=== PATIENT | male | born 1955 | race African-American/Black ===

== ENCOUNTER 2016-04-24 08:23 | Emergency (ER) | payer MEDICAID ==
[2014-12-05 19:21] VITALS: BMI 22.0
[~2016-04-24 08:23] MED LIST: MIRALAX17 GM PO; PLAVIX75 MG PO; PRILOSEC20 MG PO; PRINIVIL20 MG PO; ROBAXIN500 MG PO; ULTRAM50 MG PO
[2016-04-24 09:14] LABS: BASOPHILS 0.4 % (0.0-2.0); EOSINOPHILS 1.8 % (0-7); HEMATOCRIT 25.9 % (42.0-54.0); HEMOGLOBIN 7.9 g/dL (13.5-17.5); IMMATURE GRANULOCYTES 0.2 % (0-5); LYMPHOCYTES 23.2 % (15-50); MCH 28.6 pg (26.0-34.0); MCHC 30.5 g/dL (31.0-37.0); MCV 93.8 fL (80.0-100.0); MEAN PLATELET VOLUME 8.3 fL (7.4-10.4); MONOCYTES 4.7 % (2-11); NEUTROPHILS 69.7 % (40-80); RBC 2.76 10x6/uL (4.20-6.10); RDW 17.4 % (11.5-14.5); WBC 11.2 10x3/uL (4.8-10.8)
[2016-04-24 09:15] LABS: PLATELET COUNT 293 10x3/uL (130-400)
[2016-04-24 09:36] LABS: ALBUMIN 2.1 g/dL (3.4-5.0); ALKALINE PHOSPHATASE 89 U/L (46-116); ALT (SGPT) 24 U/L (10-68); BILIRUBIN - TOTAL 0.16 mg/dL (0.2-1.3); CALC OSMOLALITY 290 mosm/kg (275-300); CALCIUM 9.1 mg/dL (8.5-10.1); CARBON DIOXIDE 30.5 mmol/L (21.0-32.0); CHLORIDE - SERUM 106 mmol/L (98-107); CREATININE - SERUM 1.1 mg/dL (0.6-1.3); GLUCOSE 127 mg/dL (74-106); POTASSIUM - SERUM 3.9 mmol/L (3.5-5.1); PROTEIN - SERUM 6.7 g/dL (6.4-8.2); SODIUM 143 mmol/L (136-145); UREA NITROGEN 24 mg/dL (7-18); eGFR NON AFRICAN AMERICAN 72 mL/min (90-120)
[2016-04-24 09:56] LABS: CHOL - HDL RATIO 3.8 ratio (2.3-4.9); CHOLESTEROL, TOTAL 148 mg/dL (0-200); CKMB 0.4 U/L (0.0-3.6); CREATINE KINASE 27 UL (21-232); HDL CHOLESTEROL 39 mg/dL (32-96); LDL CHOLESTEROL 92 mg/dL (0-100); LDL-HDL RATIO 2.4 ratio (1.5-3.5); TRIGLYCERIDE 87 mg/dL (30-200)
[2016-04-24 10:00] LABS: TROPONIN-I < 0.017 ng/mL (0.000-0.060)
== END 2016-04-24 12:00 | disposition home or self-care (01) ==
LOC: D.ER 08:23
PROVIDERS: Emergency Medicine
DX: R07.89 Other chest pain (principal); D64.9 Anemia, unspecified; G47.00 Insomnia, unspecified; I44.60 Unspecified fascicular block; R41.89 Other symptoms and signs involving cognitive functions and awareness

== ENCOUNTER 2017-02-04 16:17 | Emergency (ER) | payer MEDICAID ==
[2014-12-05 19:21] VITALS: BMI 22.0
[2017-02-04 16:38] LABS: APPEARANCE CLEAR (CLEAR); BILIRUBIN NEGATIVE (NEGATIVE); COLOR YELLOW (YELLOW); GLUCOSE NEGATIVE (NEGATIVE); KETONE NEGATIVE (NEGATIVE); NITRITE NEGATIVE (NEGATIVE); PROTEIN NEGATIVE (NEGATIVE); UROBILINOGEN NORMAL (NORMAL)
[2017-02-04 16:52] LABS: BASOPHILS 0.4 % (0-2); EOSINOPHILS 1.1 % (0-7); HEMATOCRIT 44.7 % (42.0-54.0); HEMOGLOBIN 15.1 g/dL (13.5-17.5); IMMATURE GRANULOCYTES 0.1 % (0-5); LYMPHOCYTES 58.6 % (15-50); MCH 32.8 pg (26.0-34.0); MCHC 33.8 g/dL (31.0-37.0); MCV 97.2 fL (80.0-100.0); MEAN PLATELET VOLUME 9.9 fL (7.4-10.4); NEUTROPHILS 33.8 % (40-80); PLATELET COUNT 168 10x3/uL (130-400); WBC 10.5 10x3/uL (4.8-10.8)
[2017-02-04 17:01] LABS: ALBUMIN 3.5 g/dL (3.4-5.0); BILIRUBIN - TOTAL 0.18 mg/dL (0.2-1.3); CALCIUM 9.1 mg/dL (8.5-10.1); CARBON DIOXIDE 26.9 mmol/L (21.0-32.0); CREATININE - SERUM 1.6 mg/dL (0.6-1.3); POTASSIUM - SERUM 3.9 mmol/L (3.5-5.1); PROTEIN - SERUM 7.9 g/dL (6.4-8.2)
== END 2017-02-04 17:35 | disposition home or self-care (01) ==
LOC: D.ER 16:17
PROVIDERS: Emergency Medicine
DX: F10.129 Alcohol abuse with intoxication, unspecified (principal); F17.200 Nicotine dependence, unspecified, uncomplicated

== ENCOUNTER 2018-10-17 21:00 | Emergency (ER) | payer SELFPAY ==
[~2018-10-17] VITALS: Ht 157.5 cm; Wt 81.8 kg
[2018-10-17 21:06] VITALS: BP 185/76; Ht 157.5 cm; Wt 81.8 kg
[2018-10-17 23:08] LABS: HEMATOCRIT 44.4 % (42.0-54.0); HEMOGLOBIN 15.3 g/dL (13.5-17.5); MCH 30.9 pg (26.0-34.0); MCHC 34.5 g/dL (31.0-37.0); MCV 89.7 fL (80.0-100.0); MEAN PLATELET VOLUME 10.1 fL (7.4-10.4); PLATELET COUNT 152 10x3/uL (130-400); RBC 4.95 10x6/uL (4.20-6.10); WBC 7.4 10x3/uL (4.8-10.8)
[2018-10-17 23:18] LABS: ALBUMIN 2.9 g/dL (3.4-5.0); ANION GAP 9.8 mmol/L (8-16); BILIRUBIN - TOTAL 0.16 mg/dL (0.2-1.3); CALCIUM 8.1 mg/dL (8.5-10.1); CARBON DIOXIDE 25.7 mmol/L (21.0-32.0); CREATININE - SERUM 1.4 mg/dL (0.6-1.3); POTASSIUM - SERUM 4.5 mmol/L (3.5-5.1); PROTEIN - SERUM 6.7 g/dL (6.4-8.2)
[2018-10-17 23:19] LABS: MAGNESIUM - SERUM 2.2 mg/dL (1.8-2.4)
[2018-10-17 23:31] LABS: EOSINOPHILS 2 % (0-7); LYMPHOCYTES 58 % (15-50); MONOCYTES 5 % (2-11); NEUTROPHILS 34 % (40-80); PLATELET ESTIMATE DECREASED
== END 2018-10-18 03:48 ==
LOC: D.ER 21:00
PROVIDERS: Emergency Medicine
DX: S93.401A Sprain of unspecified ligament of right ankle, initial encounter (principal); X58.XXXA Exposure to other specified factors, initial encounter; Y93.89 Activity, other specified; Y92.89 Other specified places as the place of occurrence of the external cause; F10.129 Alcohol abuse with intoxication, unspecified; K43.9 Ventral hernia without obstruction or gangrene

== ENCOUNTER 2019-09-28 15:19 | Inpatient (IN) | payer MEDICARE ==
[~2019-09-28] VITALS: Ht 157.5 cm; Wt 74.1 kg
[2019-09-28] VITALS (7 sets, daily range): BP systolic 160–225; BP diastolic 76–118
--- NOTE | ~2019-09-28 | HEMODYNAMI ---
PATIENT:ANTIONE ADLER JR MEDICAL RECORD: [id number] : 53 LOCATION:[facility] D.2118 ADMISSION DATE: 09/28/19 Generatedon:09/30/20198:55 Patient name: ANTIONE ADLER Patient #: [id number] : 1955 Date of study: 09/30/2019 Page: Of Hemodynamic Procedure Report Patient Data Patient Demographics Procedure consent was obtained First Name: ANTIONE Gender: Male Last Name: VITOR Suffix: Patient #: [id number] : 1955 Age: 63 year(s) SSN: [id number] Race: Black Additional ID: [id number] Contact details [address]: [address] [place] [address] State: [place] City: [place] Zip code: [address] Admission Admission Data Admission Date: 09/28/2019 Admission Time: 17:02 Arrival Date: 09/28/2019 Arrival Time: 17:02 Admit Source: Other Insurance Payor: Medicare Room #: D.2118 [facility] #: [id number] Height (in.): 61.81 BSA: 1.75 (m2) Height (cm.): 157 BMI: 30.02 (kg/m2) Weight (lbs.): 163.14 Weight (kg.): 74 Lab Results Lab Result Date: 09/30/2019 Lab Result Time: 0:00 Biochemistry Name Units Result Min Max BUN mg/dl 42 --(----)-* 7 18 Creatinine mg/dl 2.2 --(----)-* 0.6 1.3 CBC Name Units Result Min Max Hemoglobin g/dl 15 --(-*--)-- 13.5 17.5 Procedure Procedure Types Cath Procedure Diagnostic Procedure LHC LHC w/Coronaries Procedure Description Procedure Date Procedure Date: 09/30/2019 Procedure Start Time: 8:41 Procedure End Time: 8:53 Procedure Staff Name Function Gigi Sprague MD Performing Physician Aissatou Betancur RT Monitor Avani Pardo RT Scrub Sandrine Turner RN Nurse Procedure Data Cath Procedure Fluoroscopy Diagnostic fluoroscopy Total fluoroscopy Time: 1.4 time: 1.4 min min Diagnostic fluoroscopy Total fluoroscopy dose: 177 dose: 177 mGy mGy Contrast Material Contrast Material Type Amount (ml) Isovue 370 16 Entry Location Entry Primary Successful Side Size Upsize Upsize Entry Closure Sher ccessful Closure Location (Fr) 1 (Fr) 2 (Fr) Remarks Device Remarks Radial Right 6 Fr Mechanical artery Short Compression Estimated blood loss: 5 ml Diagnostic catheters Device Type Used For End Catheter Placement DIAGNOSTIC [place] 110cm 5 Procedure Fr catheter ([id number]) Procedure Complications No complications Procedure Medications Medication Administration Route Dosage Oxygen etCO2 Nasal cannula 2 l/min Lidocaine 2% added to field 20 Heparin Flush Bag added to field 2 bags (1000units/500ml NS) 0.9% NaCl I.V. 125 ml/hr Versed I.V. 1 mg Radial Cocktail I.A. 1 syringe (Verapamil 2mg/Nitro 400mcg/Heparin 1500units) Hemodynamics Rest BSA: 1.75 (m2) HGB: 15 (g/dl) O2 Consumption: Estimated: 197.36 (ml/min) O2 Cons umption indexed: Estimated:112.78 (ml/min/m) Heart Rate: 59 (bpm) Pressure Samples Time Site Value (mmHg) Purpose Heart Use Rate(bpm) 8:47 LV 118/3,13 Snapshot 69 8:48 AO 123/65(86) Pullback 64 8:48 LV 110/1,3 Pullback 64 Gradients Valve Time Site 1 Site 2 Mean SEP/DFP Peak To Heart Use (mmHg) (sec/min) Peak Rate (mmHg) (bpm) Aortic 8:48 LV AO 0 64 110/1,3 123/65(86) Calculations Valve P-P Mean Valve Index Valve Source Name Gradient Area Flow (cm2) Aortic 0 0 Snapshots Pre Cath Intra NCS Post Cath Vital Signs Time Heart Resp SPO2 etCO2 NIBP (mmHg) Rhythm Pain Sedation Rate (ipm) (%) (mmHg) Status Level (bpm) 8:30:54 59 18 98 37.3 168/86(134) NSR 0 (11) 10(A) , No pain 8:35:21 57 14 100 38.8 167/78(138) NSR 0 (11) 10(A) , No pain 8:40:38 53 13 99 36.6 153/70(124) NSR 0 (11) 10(A) , No pain 8:44:58 56 12 100 38 146/76(118) NSR 0 (11) 10(A) , No pain 8:49:18 60 13 98 29.8 137/67(99) NSR 0 (11) 10(A) , No pain 8:53:32 57 15 97 34.3 135/76(109) NSR 0 (11) 10(A) , No pain Medications Time Medication Route Dose Verified Delivered Reason Notes Effectiveness by by 8:40:04 Oxygen etCO2 2 l/min Lonniered Sandrine used for Nasal Celestine Turner RN procedure cannula 8:40:09 Lidocaine 2% added 20ml Norred Norred for local to vial Celestine Sprague MD anesthetic field 8:40:15 Heparin Flush added 2 bags Gigi Yu used for Bag to Celestine Sprague MD procedure (1000units/500ml field NS) 8:40:41 0.9% NaCl I.V. 125 Gigi Deluca Per ml/hr Celestine Turner RN physician 8:40:47 Versed I.V. 1 mg Gigi Deluca for sedation Celestine Turner RN 8:44:13 Radial Cocktail I.A. 1 Norred Norred for (Verapamil syringe Celestine Sprague MD vasodilation 2mg/Nitro 400mcg/Heparin 1500units) Procedure Log Time Note 7:44:50 Diagnostic Cath Status : Urgent 7:47:21 Informed consent obtained and on chart 7:52:29 Admit Source: Other 7:52:51 Arrival Date: 09/28/2019 5:02:00 PM 7:53:49 Insurance Payor : Medicare 7:53:57 Patient Height : 61.81 inches 7:54:01 Patient Weight : 163.14 lbs 7:55:33 Lab Result : Hemoglobin 15 g/dl 7:55:33 Lab Result : Creatinine 2.2 mg/dl 7:55:33 Lab Result : BUN 42 mg/dl 7:56:00 Sandrine Turner RN sent for patient. Start room use. 7:56:01 Time tracking: Regular hours (M-F 7:00 - 5:00) 7:56:05 Plan of Care:Hemodynamics will remain stable., Cardiac rhythm will remain stable., Comfort level will be maintained., Respiratory function will remain adequate., Patient/ family verbilizes understanding of procedure., Procedure tolerated without complication., Recovers from procedure without complications.. 8:11:28 Patient received from Med/Surg to CCL 2 Alert and oriented. Tansferred to table in Supine position. 8:11:29 Warm blankets applied, and elsi hugger turned on for patient comfort. 8:11:29 Correct patient and procedure confirmed by team. 8:11:30 ECG and BP/O2 sat monitors applied to patient. 8:20:29 Risk of Mortality: 0.4 8:20:32 Risk of blood transfusion: 3.1 8:20:35 Risk of KEHINDE: 7.9 8:20:36 H&P Date Dictated: 09/28/2019 Within 30 days and on chart.. 8:20:38 Pre-procedure instructions explained to patient. 8:20:38 Pre-op teaching completed and patient verbalized understanding. 8:20:40 Family unavailable. 8:20:42 Patient NPO since Midnight. 8:20:51 Is the patient allergic to Iodine/contrast media? No. 8:20:55 Was the patient premedicated? N/A 8:20:56 ACC The patient was administered the following blood thiners within the last 24 hours: ACCPlavix 8:20:56 Is patient on blood thinner?Yes 8:20:58 Patient diabetic? No. 8:21:00 If diabetic: On Metformin? N/A 8:21:05 ----Pre-sedation anethsthesia assessment.---- 8:21:08 Previous problem with sedation/anesthesia? No ? 8:21:09 Snore? Yes 8:21:10 Sleep apnea? No 8:21:12 Deviated septum? No 8:21:13 Opens mouth fully? Yes 8:21:15 Sticks out tongue? Yes 8:21:18 Airway obstruction? No ? 8:21:21 Dentures? No ? 8:21:28 Patient pain scale 0/10 ?. 8:21:37 IV patent on arrival in right wrist with 0.9% NaCl at [facility]. 8:29:11 Pre procedure: right dorsailis pedis pulse 2+ Normal; easily identifiable; not easily obliterated 8:29:14 Modified Evangelista's test Ulnar < 7 seconds 8:29:39 Vital chart was started 8:30:00 Lab results completed and on chart. 8:30:04 Stress Test: no; N/A ? 8:30:05 Alarms reviewed by R. N. 8:30:05 Sharps counted by scrub and verified by R.N. 8:30:27 Baseline sample Acquired. 8:30:28 Full Disclosure recording started 8:30:32 Rhythm: sinus bradycardia 8:30:41 Right Radial & Right Groin area was prepped with chlora-prep and draped in sterile fashion 8:30:46 --------ALL STOP TIME OUT------ 8:30:46 Final Timeout: patient, procedure, and site verified with staff and physician. All members of the team are in agreement. 8:30:48 Right Radial & Right Groin site verified by team. 8:30:52 Fire Safety Assessment: A--An alcohol-based skin anteseptic being used preoperatively., C--Open oxygen or nitrous oxide is being used., D--An ESU, laser, or fiber-optic light is being used. 8:30:55 Physical assessment completed. ASA score P 2 - A patient with mild systemic disease as per Gigi Sprague MD. 8:31:10 3b) 30-44 Moderately reduced kidney function. 8:31:13 Maximum allowable contrast dose (3.7 X eGFR X 0.75)88 ml. 8:31:16 Sedation plan: IV Moderate Sedation Medication:Versed, Fentanyl 8:32:07 Use device set Radial Dx or PCI 8:32:09 ACIST Syringe (53369) opened to sterile field. 8:32:10 Medline Cath Pack ([id number]) opened to sterile field. 8:32:10 Bag Decanter () opened to sterile field. 8:32:11 ACIST Hand Control (12967) opened to sterile field. 8:32:11 ACIST Manifold (96721) opened to sterile field. 8:32:12 MBrace Wrist Support ([id number]) opened to sterile field. 8:32:16 EMERALD Guide Wire (893-762) opened to sterile field. 8:32:16 SHEATH 6FR RAIN (8229468) opened to sterile field. 8:40:04 Oxygen 2 l/min etCO2 Nasal cannula was administered by Sandrine Turner RN; used for procedure; Verbal order read back and verified. 8:40:09 Lidocaine 2% 20ml vial added to field was administered by Gigi Sprague MD; for local anesthetic; Verbal order read back and verified. 8:40:15 Heparin Flush Bag (1000units/500ml NS) 2 bags added to field was administered by Gigi Sprague MD; used for procedure; Verbal order read back and verified. 8:40:41 0.9% NaCl 125 ml/hr I.V. was administered by Sandrine Turner RN; Per physician; Verbal order read back and verified. 8:40:47 Versed 1 mg I.V. was administered by Sandrine Turner RN; for sedation; Verbal order read back and verified. 8:41:15 Procedure started. 8:41:20 Local anesthetic to right radial artery with Lidocaine 2% by Gigi Sprague MD.INITIAL ACCESS ONLY 8:44:02 A 6 Fr Short sheath was inserted into the Right Radial artery 8:44:13 Radial Cocktail (Verapamil 2mg/Nitro 400mcg/Heparin 1500units) 1 syringe I.A. was administered by Gigi Sprague MD; for vasodilation; Verbal order read back and verified. 8:45:26 A DIAGNOSTIC [place] 110cm 5 Fr catheter ([id number]) was advanced over the wire and used for Procedure. 8:47:00 LV gram done using NELSON 8:47:12 Zero performed for pressure channel P1 8:47:32 LV hemodynamics recorded. 8:47:42 Injector settings: Ml/sec: 12, Volume: 8, 8:47:59 EF : 20 % 8:48:23 RCA angiography performed. 8:48:28 Injector settings: Ml/sec: 2, Volume: 4, 8:48:45 LCA angiography performed. 8:48:48 ACCDominant side:Left 8:49:03 Catheter removed. 8:49:55 ZEPHYR LARGE TR BAND (726393) opened to sterile field. 8:49:59 Sheath removed intact; hemostasis achieved with Mechanical Compression to the Right Radial artery. 8:50:01 Procedure ended.(Physican Out) 8:50:16 Fluoroscopy time 01.40 minutes. 8:50:20 Flurop Dose total: 177 8:50:20 Fluoroscopy dose: 177 mGy 8:50:27 Dose Area Product 09044 mGy/cm. 8:50:34 Contrast amount:Isovue 370 16ml. 8:50:36 Maximum allowable dose exceeded? No. 8:50:37 Sharps counted by scrub and verified by R.N. 8:50:42 [place] band inflated with 12cc of air. 8:50:44 Post Procedure Pulses reassessed and unchanged 8:50:46 Post procedure: right dorsailis pedis pulse 2+ Normal; easily identifiable; not easily obliterated. 8:50:50 Post-procedure physical assessment completed. ASA score P 2 - A patient with mild systemic disease as per Gigi Sprague MD. 8:50:53 Post procedure rhythm: unchanged. 8:50:56 Estimated blood loss: 5 ml 8:50:57 Post procedure instruction explained to patient.Patient verbalizes understanding. 8:50:58 Patient needs reinforcement of post procedure teaching. 8:53:12 Procedure and supply charges have been captured, reviewed, submitted and are correct. 8:53:16 Procedure Complication : No complications 8:53:19 Vital chart was stopped 8:53:21 [facility] Findings: mild to moderate CAD (<70%) 8:53:23 Operative report dictated upon procedure completion. 8:53:24 See physician's report for complete and final results. 8:53:28 Report given to [facility]. 8:53:31 Patient transfered to [facility] with Bed. 8:53:34 Procedure ended. 8:53:34 Full Disclosure recording stopped 8:53:42 ACC-PCI Only Patient was given prescriptions, or instructed by Gigi Sprague MD to start/continue the following medications upon discharge: Plavix 8:53:43 End room use (Document Last) 8:53:56 End room use (Document Last) 8:54:31 End room use (Document Last) Device Usage Item Name Manufacture Quantity Catalog Hospital Part Current Minima l Lot# / Number Charge Number Stock Stock Serial# Code ACIST Acist 1 80850 167156 115967 230714 20 Syringe Fan TV (02365) CorvisaCloud Inc Medline Medline 1 [id number] 976537 98101 270936 5 Cath Pack ([id number]) Bag Microtek 1 883356 94902 745001 5 Decanter Medical Inc. () ACIST Hand Acist 1 73698 368965 978778 099196 5 Control Medical (23715) Systems Inc ACIST Acist 1 66603 677290 246176 387362 5 Manifold Medical (14108) Systems Inc MBrace Advanced 1 140-0250-00 895600 13300 365382 5 Wrist Vascular Support Dynamics ([id number]) EMERALD Cardinal 1 502-409 730034 592981 124333 5 Guide Wire Health (123-455) SHEATH 6FR Cardinal 1 2168907 362995 0292066 561498 5 RAIN Health (2469947) DIAGNOSTIC Terumo 1 40-9922 022980 333361 811935 5 [place] 110cm 5 Fr catheter (455049) ZEPHYR Cardinal 1 225913 253963 3613988 319158 5 LARGE TR Health BAND (623114) Signature Audit [place] Stage Time Signature Unsigned Intra-Procedure 09/30/2019 Aissatou Betancur 8:53:56 AM RT(R) Intra-Procedure 09/30/2019 Sandrine Turner RN 8:54:31 AM Intra-Procedure 09/30/2019 Gigi Sprague MD 8:55:42 AM Signatures Performing Physician : Signature : Gigi Sprague MD Date : Time : Monitor : Aissatou Betancur Signature : RT Date : Time : Nurse : Sandrine Turner RN Signature : Date : Time : [place] [address] [place] [address]
[2019-09-28 16:17] LABS: BASOPHILS 0.6 % (0-2); EOSINOPHILS 1.2 % (0-7); HEMATOCRIT 49.7 % (42.0-54.0); HEMOGLOBIN 16.2 g/dL (13.5-17.5); IMMATURE GRANULOCYTES 0.2 % (0-5); LYMPHOCYTES 49.8 % (15-50); MCH 30.9 pg (26.0-34.0); MCHC 32.6 g/dL (31.0-37.0); MCV 94.7 fL (80.0-100.0); MEAN PLATELET VOLUME 10.4 fL (7.4-10.4); MONOCYTES 6.4 % (2-11); NEUTROPHILS 41.8 % (40-80); RBC 5.25 10x6/uL (4.20-6.10); RDW 16.1 % (11.5-14.5); WBC 9.3 10x3/uL (4.8-10.8)
[2019-09-28 16:22] LABS: PLATELET COUNT 253 10x3/uL (130-400)
[2019-09-28 16:25] LABS: CALC OSMOLALITY 281 mosm/kg (275-300); CALCIUM 8.3 mg/dL (8.5-10.1); CARBON DIOXIDE 21.2 mmol/L (21.0-32.0); CHLORIDE - SERUM 107 mmol/L (98-107); GLUCOSE 145 mg/dL (74-106); POTASSIUM - SERUM 4.1 mmol/L (3.5-5.1); SODIUM 138 mmol/L (136-145); UREA NITROGEN 22 mg/dL (7-18); eGFR NON AFRICAN AMERICAN 36 mL/min (90-120)
--- NOTE | 2019-09-28 16:30 | NUR ---
RT AT PT BEDSIDE
[2019-09-28 16:42] LABS: ALBUMIN 2.3 g/dL (3.4-5.0); ALKALINE PHOSPHATASE 138 U/L (30-120); ALT (SGPT) 27 U/L (10-68); BILIRUBIN - TOTAL 0.28 mg/dL (0.2-1.3); CKMB 3.3 U/L (0.0-3.6); CREATINE KINASE 196 UL (21-232); PRO BNP 21575 pg/mL (0-125); PROTEIN - SERUM 6.9 g/dL (6.4-8.2); TROPONIN-I 0.054 ng/mL (0.000-0.060)
--- NOTE | 2019-09-28 17:10 | NUR ---
PT AGITATED WITH BIPAP AND C/O NAUSEA.
--- NOTE | 2019-09-28 17:36 | NUR ---
PT FAMILY MEMBER AT BEDSIDE. PT TOLERATING BIPAP AT THIS TIME.
--- NOTE | 2019-09-28 18:15 | NUR ---
PT C/O "NOT ABLE TO BREATHE". O2 SAT 98% ON BIPAP. RN DISCUSSED BENEFITS OF BIPAP WITH PT.
--- NOTE | 2019-09-28 22:00 | NUR ---
PATIENT ARRVIED ON FLOOR VIA BED FROM ER, ACCOMPANIED BY HOPITAL STAFF. NO S/S OF ACUTE DISTRESS. NO C/O AT THIS TIME. PATIENT IS ON 8L NASAL CANNULA AND WILL BE PUT ON BIPAP. PATIENT HAS A LARGE HERNIA PROTRUDING FROM MIDDLE RIGHT OF HIS ABDOMEN. PATIENT HAS A COLOSTOMY THAT HE TAKES CARE OF. PATIENT HAS A RIGHT HAND IV, SALINE LOC. IV IS PATENT WITHOUT REDNESS, SWELLING, OR TENDERNESS. PATEINT IS UP WITH STAND BY ASSIST TO THE BATHROOM TO HELP WITH BIPAP. PATEINT WEARS BRIEFS. CALL LIGHT WITHIN REACH. WILL CONTINUE TO MONITOR.
[2019-09-29] VITALS: BP 184/79
[2019-09-29 04:00] VITALS: BP 166/63
[2019-09-29 05:58] LABS: HEMATOCRIT 47.6 % (42.0-54.0); HEMOGLOBIN 15.5 g/dL (13.5-17.5); LYMPHOCYTES 16.1 % (15-50); MCH 30.2 pg (26.0-34.0); MCHC 32.6 g/dL (31.0-37.0); MCV 92.6 fL (80.0-100.0); MEAN PLATELET VOLUME 10.7 fL (7.4-10.4); NEUTROPHILS 83.1 % (40-80); PLATELET COUNT 238 10x3/uL (130-400); RBC 5.14 10x6/uL (4.20-6.10); RDW 16.2 % (11.5-14.5); WBC 6.7 10x3/uL (4.8-10.8)
[2019-09-29 06:18] LABS: ANION GAP 14.4 mmol/L (8-16); CALCIUM 8.5 mg/dL (8.5-10.1); CARBON DIOXIDE 23.4 mmol/L (21.0-32.0); CREATININE - SERUM 1.9 mg/dL (0.6-1.3); POTASSIUM - SERUM 3.8 mmol/L (3.5-5.1)
[2019-09-29 06:21] LABS: TROPONIN-I 0.646 ng/mL (0.000-0.060)
[2019-09-29 07:15] VITALS: BP 190/68
--- NOTE | 2019-09-29 08:30 | NUR ---
4 L O2 HIGH FLOW ON SO HE CAN EAT BREAKFAST. CL IN REACH. NO NEEDS AT THIS TIME. WCTM
[2019-09-29 12:00] VITALS: BP 106/67
--- NOTE | 2019-09-29 14:25 | NUR ---
PATIENT RESTING WITH BIPAP ON. 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 CL IN REACH. WCTM
--- NOTE | 2019-09-29 14:33 | NUR ---
CO OF FOOT CRAMP. RUBBED HIS RIGHT FOOT TO HELP WITH THE PAIN. PATIENT STATED IT HELPED. CL IN REACH. WCTM.
--- NOTE | 2019-09-29 15:19 | NUR ---
PATIENT REQUESTED AND RECIEVED NEW COLOSTOMY DRESSING BECAUSE THE OTHER ONE HE PUT ON TODAY STILL HAD "PAPER" ATTACHED TO THE OUTER EDGES AND IT LEAKED THROUGH. CL IN REACH. TA
[2019-09-29 16:00] VITALS: BP 144/70
--- NOTE | 2019-09-29 19:33 | NUR ---
PATIENT RESTING IN BED WITH NO S/S OF DISTRESS ON BIPAP. PATIENT DENIES NEEDS AT THIS TIME. BED IN LOWEST POSITION AND CALL LIGHT WITHIN REACH. ENCOURAGED THE PATIENT TO CALL IF HE HAS NEEDS. WILL CONTINUE TO MONITOR.
[2019-09-29 20:00] VITALS: BP 139/66
[2019-09-30] VITALS (7 sets, daily range): BP systolic 120–162; BP diastolic 57–89; Ht 157.5 cm; Wt 74.1 kg
--- NOTE | 2019-09-30 04:00 | NUR ---
PATIENT C/O OF 10/10 TIGHTNESS IN CHEST.
--- NOTE | 2019-09-30 04:08 | NUR ---
COMPLETED EKG AND ADMINISTERED MORPHINE PER ORDERS FOR PAIN.
--- NOTE | 2019-09-30 04:23 | NUR ---
PAGED DR. TEJADA ON-CALL FOR CARDIOLOGY
--- NOTE | 2019-09-30 04:26 | NUR ---
SPOKE WITH DR. TEJADA IN REGARDS TO PATIENT'S C/O CHEST PAIN. DR. TEJADA ORDERED PLAVIX 300MG, NITRO, AND NPO AT BREAKFAST. ALSO NOTIFIED DR. TEJADA THAT I ADMINISTERED MORPHINE PER ORDERS.
--- NOTE | 2019-09-30 04:51 | NUR ---
ADMINISTERED PLAVIX AND NITRO. PATIENT STATES PAIN IS MUCH BETTER AFTER MORPHONE. RATED PAIN 6/10.
--- NOTE | 2019-09-30 05:30 | NUR ---
PATIENT RESTING IN BED AND STATES THAT HE IS "FEELING BETTER". ENCOURAGED THE PATIENT TO CALL IF HE HAS NEEDS. WILL CONTINUE TO MONITOR.
[2019-09-30 06:15] LABS: HEMATOCRIT 45.6 % (42.0-54.0); LYMPHOCYTES 14.3 % (15-50); MCH 30.2 pg (26.0-34.0); MCHC 32.9 g/dL (31.0-37.0); MCV 91.9 fL (80.0-100.0); MEAN PLATELET VOLUME 10.5 fL (7.4-10.4); NEUTROPHILS 78.6 % (40-80); PLATELET COUNT 242 10x3/uL (130-400); RBC 4.96 10x6/uL (4.20-6.10); RDW 16.5 % (11.5-14.5)
[2019-09-30 06:19] LABS: ANION GAP 9.2 mmol/L (8-16); CALCIUM 8.3 mg/dL (8.5-10.1); CARBON DIOXIDE 29.7 mmol/L (21.0-32.0); CREATININE - SERUM 2.2 mg/dL (0.6-1.3); POTASSIUM - SERUM 3.9 mmol/L (3.5-5.1)
[2019-09-30 06:22] LABS: WBC 10.4 10x3/uL (4.8-10.8)
--- NOTE | 2019-09-30 08:11 | NUR ---
TRIED TO DO OR PRE-OP CHECKLIST IN COMPUTER. IT WAS "NOT AVAILABLE" FOR THIS PATIENT. PATIENT HAS WENT TO BATHROOM. HAS BEEN PREOPPED. FRESH LINENS. AND GROIN CLIPPED. BP AND HEART MEDS GIVEN WELL. DAUGHTER CALLED LEFT A VOICE MAIL LETTING HER KNOW TO CALL ME. ANASTACIO DAVEY [phone]. WILL CALL REPORT TO M2.
--- NOTE | 2019-09-30 08:29 | NUR ---
patient belonging's brought to 2117. wallet and glasses between tissue box in bag under sink
--- NOTE | 2019-09-30 09:33 | NUR ---
RECEIVED PT FROM CURING OVEN TENDER. PT IS RESTING WITH EYES CLOSED AT THIS TIME. VSS AND WNL. NO S/S OF DISTRESS NOTED. RR EVEN AND UNLABORED ON 3L 02. QUICKSTART COMPLETE. WILL CTM.
--- NOTE | 2019-09-30 09:43 | NUR ---
SPOKE WITH DAUGHTER. UPDATED HER ON MY KNOWLEDGE OF THE NIGHT AND THIS AM'S EVENTS. TRANSFERRED HER TO .
--- NOTE | 2019-09-30 13:51 | HP ---
PATIENT: ANTIONE ADLER JR MEDICAL RECORD: [id number] ACCOUNT: [id number] LOCATION:[address] : 53 ADMISSION DATE: 09/28/19 PCP: CLEOPATRA LAZAR MD HISTORY AND PHYSICAL EXAMINATION REASON FOR ADMISSION: Complaints of shortness of breath. HISTORY OF PRESENT ILLNESS: The patient is a 63-year-old -[place] male who is followed mainly at [facility] for COPD and diastolic congestive heart failure. He sees Dr. Villeda. He states that he had been feeling okay in the last couple of days and get little bit more short of breath, worse today. He admits he has been out of his inhalers and I suspect most of his medications. He continues to smoke a half pack a day, he has had a cough, nonproductive. Denies fever, just shortness of breath. He has had little ankle swelling as well. Denies chest pain and palpitations. He denies loss of sense of taste or smell or fever. PAST MEDICAL HISTORY: Chronic combined systolic and diastolic heart failure, history of PE, anticoagulated in the past, on anticoagulation. Essential hypertension, LVH, nicotine dependence, renal insufficiency, chronic back pain, diabetes mellitus, GERD, MRSA positive 2018 and resolved, obstructive sleep apnea, not on CPAP. Mild mitral regurgitation, [id number]-rkvslhux aortic insufficiency. History of benign colon mass removed with colostomy. PAST SURGICAL HISTORY: He has had debridement of the skin, subcutaneous tissue of the buttocks. He has had hip joint surgery with irrigation and debridement on the left buttocks. Skin tissue procedure, split thickness skin graft. Last echo 2018 showed an EF of 36%. FAMILY HISTORY: Father's history unknown. Mother with hypertension. Sister, hypertension and diabetes. One brother with heart disease. Son has had 2 coronary stents placed. SOCIAL HISTORY: He admits to drinking beer and smoking cigarettes. He said he has never had trouble with alcohol or had DTs. HOME MEDICATIONS: Again, compliance is questionable. Doxazosin 2 mg a day, Eliquis 5 mg 2 times daily, Norvasc 10 mg a day, Zocor 20 mg a day, Wellbutrin-SR 150 mg p.o. q.12 hours, Coreg 25 mg p.o. b.i.d., Lasix 20 mg 2 tablets in the morning and 1 tablet in the evening, isosorbide 60 mg p.o. daily ER extended. Periactin 4 mg q.8 hours p.r.n. allergies, hydroxyzine 50 mg q.6 hours p.r.n. itching, losartan 25 mg p.o. daily, Zofran 4 mg p.r.n. nausea, Pepcid 20 mg p.o. at bedtime p.r.n., Ambien 5 mg at bedtime for sleep, and Carafate 1 gram p.o. q.i.d. a.c. and at bedtime. REVIEW OF SYSTEMS: GENERAL: Denies fever. Recently, he has had some fatigue. HEENT: No recent visual change, sinus congestion, or sore throat. RESPIRATORY: Increasing shortness of breath for the last 1-2 days, he has had a dry nonproductive cough. Denies hemoptysis. CARDIAC: Denies palpitations, chest pain, or claudication. GASTROINTESTINAL: He has had slight increase in edema in his lower extremities, right greater than left. ENDOCRINE: Denies polyuria, polydipsia, heat or cold intolerance. HISTORY AND PHYSICAL [id number] ANTIONE ADLER JR NEUROLOGIC: No history of stroke, TIA, or vascular headaches. INTEGUMENT: No rash or itching. PSYCHIATRIC: Denies depressed mood. PHYSICAL EXAMINATION: VITAL SIGNS: Temperature 97 Fahrenheit orally, heart rate 110 irregular, respirations were 30, blood pressure 241/111. GENERAL: The patient is alert and oriented. HEENT: Eyes are clear. He was tachypneic. Oropharynx unremarkable. NECK: Supple. CHEST: He is tachypneic, no retractions, has faint wheeze in the upper lobes. No rales. HEART: Tachycardic without murmur. ABDOMEN: Soft and nontender. He has a colostomy bag in the left lower quadrant. GENITOURINARY: Deferred. MUSCULOSKELETAL: He has 2+ mild pedal edema and pretibial edema, right over left. Homans sign is negative. NEUROLOGICAL: Oriented to person, place, and time. Cranial nerves intact. Gait was not tested. LABORATORY DATA: Shows white count of 9000 with a normal diff, H and H is 16 and 49 respectively. Blood gas initially pH 7.19, pCO2 of 59, and pO2 of 71 on 9 liters. Chest x-ray shows pulmonary vascular congestion, early interstitial edema, possible bilateral trace pleural effusions. ProBNP is 21,575. Troponin 0.054. CPK-MB is 3.3 and kinase is 196. AST is elevated at 98, glucose is 145. BUN and creatinine are 22 and 2.0. ASSESSMENT: 1. Acute onset of shortness of breath with acidosis and hypercarbia. 2. Frzjh-fk-peypomp systolic and diastolic congestive heart failure, history of pulmonary embolus, probably noncompliant on Eliquis. 3. Hypertension, questionable medical compliance. 4. COPD. 5. Nicotine addiction. 6. Renal insufficiency. PLAN: We will give Lasix to help with pulmonary edema and hypertension. Resume his home meds, which he has probably been out of currently. Check D-dimer. If elevated, we will check V/Q scan due to renal insufficiency. I am not sure if he has been compliant on his medication at this time as he is an unassigned patient and he admits to not taking his updrafts, i.e., his pulmonary inhalers recently. Pulmonary has been consulted. TRANSINT:[id number] Voice Confirmation ID: [id number] DOCUMENT ID: [id number] 09/30/2019 Edited for content publisher error, dmm. HISTORY AND PHYSICAL [id number] ANTIONE ADLER JR, TIMOTHY MD at 1351 CC: [id number] DICTATION DATE: 09/28/192122 WIND TUNNEL TECHNICIAN: 09/28/19 2305 ADM [place] [id number] [place] [id number]
--- NOTE | 2019-09-30 22:26 | NUR ---
PATIENT IS RESTING COMFORTABLY IN BED. IV FLUIDS STARTED ORDERED. PATIENT IS ALERT AND ORIENTED. CALL LIGHT IS WITH IN REACH.
[2019-10-01] VITALS (7 sets, daily range): BP systolic 143–158; BP diastolic 57–97
--- NOTE | 2019-10-01 04:09 | NUR ---
PATIENT IS SLEEPING COMFORTABLY IN BED. HE CHANGED OUT HIS COLOSTOMY LAST NIGHT. HE IS STILL ALERT AND ORIENTED, AND CALL LIGHT IS WITHIN REACH.
[2019-10-01 07:51] LABS: ALBUMIN 2.2 g/dL (3.4-5.0); ANION GAP 8.4 mmol/L (8-16); BILIRUBIN - TOTAL 0.27 mg/dL (0.2-1.3); CALCIUM 7.9 mg/dL (8.5-10.1); CARBON DIOXIDE 30.2 mmol/L (21.0-32.0); CREATININE - SERUM 1.9 mg/dL (0.6-1.3); MAGNESIUM - SERUM 2.1 mg/dL (1.8-2.4); PHOSPHOROUS 3.2 mg/dL (2.5-4.9); POTASSIUM - SERUM 3.6 mmol/L (3.5-5.1); PROTEIN - SERUM 5.5 g/dL (6.4-8.2)
--- NOTE | 2019-10-01 09:09 | MORECARE ---
CASE MANAGEMENT DISCHARGE SUMMARY PATIENT: ANTIONE ADLER JR UNIT: [id number] ADM DATE: 09/28/19 AGE: 63 : 54 SEX: M ROOM/BED: D.[facility]8 AUTHOR: SADIE PARMAR PHYSICIAN: REFERRING PHYSICIAN: RIOS NEFF MD DATE OF SERVICE: 10/01/19 Discharge Plan Patient Name: ANTIONE ADLER Facility: [facility]:[place] : 1955 Planned Disposition: Home Anticipated Discharge Date: Discharge Date: Expected LOS: Initial Reviewer: [email or web address] Initial Review Date: 10/01/2019 Generated: 10/01/19 10:09 am DCPIA - Discharge Planning Initial Assessment Updated by [email or web address]: Trista Garvin on 10/01/19 9:07 am * Is the patient Alert and Oriented? Yes * PCP Dtotie Michaels with [facility] * Pharmacy [facility] on [address] * Preadmission Environment Home with Family * ADLs Independent * Equipment Cane Walker * List name and contact numbers for known caregivers / representatives who currently or will assist patient after discharge: Gonzalez Robert - DTR - [phone] * Verbal permission to speak to the caregivers and representatives has been obtained from the patient. Yes * Community resources currently utilized None * Additional services required to return to the preadmission environment? Yes * Can the patient safely return to the preadmission environment? Yes * Has this patient been hospitalized within the prior 30 days at any hospital? No External Providers [facility] Next Contact Date: Service Request Date: Service Type: Resolution: Reviewer: Comments: Coverage Notice Reviewer: [id number] - Trista Garvin Notice Issued Date-Time: 10/01/2019 9:04 Notice Type: Patient Choice Letter Notice Delivered To: Patient Relationship to Patient: Self Central Office Frame Wirer Name: Delivery Method: HAND - Hand Delivered Mary Days: Prior Verbal Notification: Recipient Understood Notice: Yes Recipient Signature: Yes Med Rec Note Co-signed by Attending: Coverage Notice Comment: ALIYAH parker Gibbons Patient Name: ANTIONE ADLER Page 05272 at 0909 All edits/amendments must be made on the electronic document DICTATION DATE: 10/01/19908 SCRAPER LOADER OPERATOR: WENDIE 10/01/19908 RPT#: [id number] DC DATE: STATUS: ADM IN [facility] [address] [place] [address] END OF REPORT
--- NOTE | 2019-10-01 09:16 | MORECARE ---
CASE MANAGEMENT DISCHARGE SUMMARY PATIENT: ANTIONE ADLER JR UNIT: [id number] ADM DATE: 09/28/19 AGE: 63 : 54 SEX: M ROOM/BED: D.6300 AUTHOR: AGATA,DOC PHYSICIAN: REFERRING PHYSICIAN: RIOS NEFF MD DATE OF SERVICE: 10/01/19 Discharge Plan Patient Name: ANTIONE ADLER Facility: [facility]:[place] : 1955 Planned Disposition: Home Anticipated Discharge Date: Discharge Date: Expected LOS: Initial Reviewer: [email or web address] Initial Review Date: 10/01/2019 Generated: 10/01/19 10:16 am Comments DCP- Discharge Planning Updated by [id number]: Trista Garvin on 10/01/19 8:[address] Patient Name: ANTIONE ADLER Admission Status: Elective Accout number: [id number] Admission Date: 09-28-2019 : 1955 Admission Diagnosis: Attending: RIOS NEFF Current LOS: 3 Anticipated DC Date: Planned Disposition: Home Primary Insurance: [employer] ADV Discharge Planning Comments: CM met with patient to complete initial dc planning assessment. CM educated patient on the CM role and verbal consent given by patient to complete assessment. Patient lives at home alone. At discharge patient plans to return and feels this is a safe discharge. CM discussed availability of home health, rehab services, and medical equipment. Patient denied known discharge needs at this time. I informed the patient that Dr. Marroquin wants him to have a nebulizer and nebulizer medications on discharge and he may need oxygen, we will have to check a room air oxygen saturation within 2 days of discharge. He signed ALIYAH for [facility]. I faxed a nebulizer order along with copy of insurance cards and clinical to [facility] and spoke with Shon. CM will continue to follow and will assist as needed with dc plans/needs. Family Practice Medical Doctor: Trista Garvin DCPIA - Discharge Planning Initial Assessment Updated by [email or web address]: Trista Garvin on 10/01/19 9:07 am * Is the patient Alert and Oriented? Yes * PCP Dottie Michaels with [facility] * Pharmacy [facility] on [address] * Preadmission Environment Home with Family * ADLs Independent * Equipment Cane Walker * List name and contact numbers for known caregivers / representatives who currently or will assist patient after discharge: Gonzalez Jones DTR - [phone] * Verbal permission to speak to the caregivers and representatives has been obtained from the patient. Yes * Community resources currently utilized None * Additional services required to return to the preadmission environment? Yes * Can the patient safely return to the preadmission environment? Yes * Has this patient been hospitalized within the prior 30 days at any hospital? No Coverage Notice Reviewer: [email or web address] Remedios Garvin Notice Issued Date-Time: 10/01/2019 9:04 Notice Type: Patient Choice Letter Notice Delivered To: Patient Relationship to Patient: Self Epic [employer]ists Name: Delivery Method: HAND - Hand Delivered Mary Days: Prior Verbal Notification: Recipient Understood Notice: Yes Recipient Signature: Yes Med Rec Note Co-signed by Attending: Coverage Notice Comment: ALIYAH for [facility] DP export: 10/01/19 8:09 a Patient Name: ANTIONE ADLER Page [id number] at 0916 All edits/amendments must be made on the electronic document DICTATION DATE: 10/01/19915 SUPERVISOR LANDSCAPE: WENDIE 10/01/19915 RPT#: [id number] DC DATE: STATUS: ADM IN [facility] [address] [place] [address] END OF REPORT
--- NOTE | 2019-10-01 14:02 | EC ---
PATIENT:ANTIONE ADLER JR DATE OF SERVICE: 09/28/19 SEX: M MEDICAL RECORD: [id number] DATE OF : 53 LOCATION:D.M2 D.211 AGE OF PATIENT: 63 ADMISSION DATE: 09/28/19 REFERRING PHYSICIAN: INTERPRETING PHYSICIAN: BARBI TEJADA MD ECHOCARDIOGRAM REPORT ECHO CHARGES 4 ECHO COMPLETE Date: 09/29/19 CLINICAL DIAGNOSIS: DYSPNEA/CHF ECHOCARDIOGRAPHIC MEASUREMENTS (adult normal given) AC root (d.<3.7cm) 3.5 cm LV Septum d (<1.2 cm> 1.8 cm Valve Excursion 2.1 cm LV Septum (systole) 2.2 cm Left Atria (s.<4.0cm> 4.5 cm LVPW d(<1.2cm) 1.7 cm RV (d.<2.3cm) 2.2 cm LVPW (sytole) 2.1 cm LV diastole(<5.6CM) 5.3 cm MV E-F(>70mm/sec) cm LV systole 3.6 cm LVOT Diameter 1.8 cm MV exc.(>10mm) cm Est.ejection fraction (50-75%) % DOPPLER: LVIT cm/sec A 74.0 cm/sec E 122 cm/sec LA cm/sec RVSP 22.0 mmHg LVOT 108 cm/sec AOP1/2T m/s Asc. Ao 165 cm/sec RVOT 71.0 cm/sec RA cm/sec PA 106 cm/sec AV Gradient Peak 11.0 mmHg AV Mean 5.7 mmHg AV Area 1.4 cm MV Gradient Peak 5.7 mmHg MV Mean 1.5 mmHg MV Area cm COMMENTS: Wwe Wrestler: Alda ALBERTOOE Glove Examiner: Yareli Tejada TAPE# PACS Pericardial Effusion N DATE OF SERVICE: 09/29/2019 PROCEDURE: Transthoracic echocardiogram. FINDINGS: 1. Left ventricle shows left ventricular hypertrophy, ejection fraction 30% to 40%, global hypokinesis. Inflow characteristics are normal. 2. Left atrium is mildly dilated. 3. Aortic valve is a trileaflet structure; however, there is centralized moderate aortic regurgitation. Deceleration time not recorded; however, ECHOCARDIOGRAM REPORT [id number] ANTIONE ADLER JR visually it looks like it is in the moderate range. 4. Mitral valve has mild mitral regurgitation, structurally normal. 5. Trace tricuspid regurgitation with structurally normal tricuspid valve. RVSP is 22 mmHg. 6. Pericardium shows no pericardial effusion. 7. Right ventricle: Normal structure with mild RVH. 8. Right atrium is normal size and structure and function. TRANSINT:[id number] Voice Confirmation ID: [id number] DOCUMENT ID: [id number] BARBI TEJADA MD at 1402 CC: [id number] DICTATION DATE: 09/30/19730 WELLNESS ASSISTANT: 09/30/19 1309 ADM IN [facility] [address] [place] [address]
--- NOTE | 2019-10-01 19:00 | NUR ---
PATIENT IS RESTING COMFORTABLE IN BED. HE IS ALERT AND ORIENTED. HE IS USING URINAL TO VOID, SINCE HE HAS IV FLUIDS GOING. CALL LIGHT IS WITHIN REACH.
[2019-10-02 04:05] VITALS: BP 152/76
--- NOTE | 2019-10-02 04:21 | NUR ---
PATIENT IS SLEEPING COMFORTALBLY IN BED. PATIENT WORE BIPAP TONIGHT. HE HAS VOIDED MANY TIMES. HE DID NOT USE THE URINAL. I CHARTED WHAT I COLLECTED,AND REMINDED HIM TO USE THE URINAL.
[2019-10-02 06:44] LABS: ANION GAP 4.8 mmol/L (8-16); CALCIUM 7.9 mg/dL (8.5-10.1); CARBON DIOXIDE 30.9 mmol/L (21.0-32.0); CREATININE - SERUM 1.7 mg/dL (0.6-1.3); PHOSPHOROUS 2.9 mg/dL (2.5-4.9); POTASSIUM - SERUM 3.7 mmol/L (3.5-5.1)
[2019-10-02 09:00] VITALS: BP 160/70
--- NOTE | 2019-10-02 09:48 | NUR ---
02 SAT 97% ON RA AMBULATING HALLWAY WITH RT.
[2019-10-02 11:00] VITALS: BP 151/74
--- NOTE | 2019-10-02 11:30 | MORECARE ---
CASE MANAGEMENT DISCHARGE SUMMARY PATIENT: ANTIONE ADLER JR UNIT: [id number] ADM DATE: 09/28/19 AGE: 63 : 53 SEX: M ROOM/BED: D.2118 AUTHOR: SADIE PARMAR PHYSICIAN: REFERRING PHYSICIAN: RIOS GARCIA MD DATE OF SERVICE: 10/02/19 Discharge Plan Patient Name: ANTIONE ADLER Facility: [facility]:[place] : 1955 Planned Disposition: Home Anticipated Discharge Date: Discharge Date: Expected LOS: Initial Reviewer: [email or web address] Initial Review Date: 10/01/2019 Generated: 10/02/19 12:30 pm Comments DCP- Discharge Planning Updated by [email or web address]: Trista Virgie on 10/02/19 10:[address] Patient resting room air saturation is 98% and 97% during exertion, he does not qualify for home oxygen. [facility] has his nebulizer and neb meds on order, they will deliver on discharge. His insurance requires a prior auth for Entrest[employer], I called and spoke with Randi at Dr Garcia's office and she will notify Dr. Garcia. Randi states she will call me back with instruction. CM will continue to follow and assist with discharge planning/needs. DCP- Discharge Planning Updated by [email or web address]: Trista Virgie on 10/01/19 8:[address] Patient Name: ANTIONE ADLER Admission Status: Elective Accout number: [id number] Admission Date: 09-28-2019 : 1955 Admission Diagnosis: Attending: RIOS GARCIA Current LOS: 3 Anticipated DC Date: Planned Disposition: Home Primary Insurance: [employer] ADV Discharge Planning Comments: CM met with patient to complete initial dc planning assessment. CM educated patient on the CM role and verbal consent given by patient to complete assessment. Patient lives at home alone. At discharge patient plans to return and feels this is a safe discharge. CM discussed availability of home health, rehab services, and medical equipment. Patient denied known discharge needs at this time. I informed the patient that Dr. Marroquin wants him to have a nebulizer and nebulizer medications on discharge and he may need oxygen, we will have to check a room air oxygen saturation within 2 days of discharge. He signed ALIYAH for [facility]. I faxed a nebulizer order along with copy of insurance cards and clinical to [facility] and spoke with Shon. CM will continue to follow and will assist as needed with dc plans/needs. High Lift Driver: Trista Garvin DCPIA - Discharge Planning Initial Assessment Updated by [email or web address]: Trista Garvin on 10/01/19 9:07 am * Is the patient Alert and Oriented? Yes * PCP Dottie Michaels with [facility] * Pharmacy [facility] on [address] * Preadmission Environment Home with Family * ADLs Independent * Equipment Cane Walker * List name and contact numbers for known caregivers / representatives who currently or will assist patient after discharge: Gonzalez Robert [facility] - [phone] * Verbal permission to speak to the caregivers and representatives has been obtained from the patient. Yes * Community resources currently utilized None * Additional services required to return to the preadmission environment? Yes * Can the patient safely return to the preadmission environment? Yes * Has this patient been hospitalized within the prior 30 days at any hospital? No Coverage Notice Reviewer: [email or web address] - Trista Garvin Notice Issued Date-Time: 10/01/2019 9:04 Notice Type: Patient Choice Letter Notice Delivered To: Patient Relationship to Patient: Self Big Data Developer Name: Delivery Method: HAND - Hand Delivered Amry Days: Prior Verbal Notification: Recipient Understood Notice: Yes Recipient Signature: Yes Med Rec Note Co-signed by Attending: Coverage Notice Comment: ALIYAH for [facility] Last DP export: 10/01/19 8:16 a Patient Name: ANTIONE ADLER Page [phone] at 1130 All edits/amendments must be made on the electronic document DICTATION DATE: 10/02/19 1130 CHANNEL REBUILDER: WENDIE 10/02/19 1130 RPT#: [id number] DC DATE: STATUS: ADM IN [facility] [address] [place] [address] END OF REPORT
--- NOTE | 2019-10-02 13:28 | NUR ---
Nutrition Follow-up: Pt noted to have eaten ~50% of breakfast this AM. Diet: Low Na Wt: 163.1# (10/01); 164# (09/27 - stated) Labs noted: Glu 129, Ca 7.9 Meds noted: Miralax, Humulin, electrolyte protocol -May consider Low Na, Carb Consistent diet. -Encourage PO intake and honor food preferences within diet restrictions. -Monitor wt. -RD following.
[2019-10-02 15:00] VITALS: BP 174/71
[2019-10-02 20:48] VITALS: BP 152/69
--- NOTE | 2019-10-02 22:09 | NUR ---
PATIENT IS RESTING COMFORTABLY IN BED. HE IS ON CONTINUOUS PULSOXIMETRY. WHILE ASSESSING HIS LEGS FOR EDEMA, I NOTICE BLOOD ON THE SHEETS. HE HAS A SMALL WOUND ON HIS OUTSIDE RIGHT ANKLE. I PUT A SMALL MEPILEX ON IT, AND IT IS CHARTED IN HIS ASSESSMENT.
[2019-10-03 00:48] VITALS: BP 161/57
--- NOTE | 2019-10-03 03:59 | NUR ---
PATIENT IS SLEEPING COMFORTABLY NOW. HE CHANGED HIS COLOSTOMY BAG LAST NIGHT. HE WAS MONITORED BY RT FOR HIS CONTINUOUS PULSE OXIMETRY MONITOR WHILE SLEEPING.
[2019-10-03 06:00] VITALS: BP 150/66
[2019-10-03 06:54] LABS: ANION GAP 6.6 mmol/L (8-16); CALCIUM 9.1 mg/dL (8.5-10.1); CARBON DIOXIDE 29.2 mmol/L (21.0-32.0); CREATININE - SERUM 1.5 mg/dL (0.6-1.3); POTASSIUM - SERUM 3.8 mmol/L (3.5-5.1)
[2019-10-03 08:11] VITALS: BP 142/71
[2019-10-03 12:13] VITALS: BP 144/59
--- NOTE | 2019-10-03 12:58 | MORECARE ---
CASE MANAGEMENT DISCHARGE SUMMARY PATIENT: ANTIOEN ADLER JR UNIT: [id number] ADM DATE: 09/28/19 AGE: 63 : 54 SEX: M ROOM/BED: D.2118 AUTHOR: SADIE PARMAR PHYSICIAN: REFERRING PHYSICIAN: RIOS GARCIA MD DATE OF SERVICE: 10/03/19 Discharge Plan Patient Name: ANTIONE ADLER Facility: [facility]:[place] : 1955 Planned Disposition: Home Anticipated Discharge Date: Discharge Date: Expected LOS: Initial Reviewer: [email or web address] Initial Review Date: 10/01/2019 Generated: 10/03/19 1:57 pm Comments DCP- Discharge Planning Updated by [email or web address]: Trista Garvin on 10/02/19 10:[address] Patient resting room air saturation is 98% and 97% during exertion, he does not qualify for home oxygen. [facility] has his nebulizer and neb meds on order, they will deliver on discharge. His insurance requires a prior auth for [employer]rest[employer], I called and spoke with Randi at Dr Garcia's office and she will notify Dr. Garcia. Randi states she will call me back with instruction. CM will continue to follow and assist with discharge planning/needs. DCP- Discharge Planning Updated by [email or web address]: Trista Garvin on 10/01/19 8:[address] Patient Name: ANTIONE ADLER Admission Status: Elective Accout number: [id number] Admission Date: 09-28-2019 : 1955 Admission Diagnosis: Attending: RIOS GARCIA Current LOS: 3 Anticipated DC Date: Planned Disposition: Home Primary Insurance: [employer] ADV Discharge Planning Comments: CM met with patient to complete initial dc planning assessment. CM educated patient on the CM role and verbal consent given by patient to complete assessment. Patient lives at home alone. At discharge patient plans to return and feels this is a safe discharge. CM discussed availability of home health, rehab services, and medical equipment. Patient denied known discharge needs at this time. I informed the patient that Dr. Marroquin wants him to have a nebulizer and nebulizer medications on discharge and he may need oxygen, we will have to check a room air oxygen saturation within 2 days of discharge. He signed ALIYAH for [facility]. I faxed a nebulizer order along with copy of insurance cards and clinical to [facility] and spoke with Shon. CM will continue to follow and will assist as needed with dc plans/needs. Reversal Print Inspector: Trista Garvin DCPIA - Discharge Planning Initial Assessment Updated by [email or web address]: Trista Garvin on 10/01/19 9:07 am * Is the patient Alert and Oriented? Yes * PCP Dottie Michaels with [facility] * Pharmacy [facility] on [address] * Preadmission Environment Home with Family * ADLs Independent * Equipment Cane Walker * List name and contact numbers for known caregivers / representatives who currently or will assist patient after discharge: Gonzalez Robert [facility] - [phone] * Verbal permission to speak to the caregivers and representatives has been obtained from the patient. Yes * Community resources currently utilized None * Additional services required to return to the preadmission environment? Yes * Can the patient safely return to the preadmission environment? Yes * Has this patient been hospitalized within the prior 30 days at any hospital? No External Providers External Provider: [facility] Next Contact Date: Service Request Date: Service Type: Resolution: Reviewer: Comments: Coverage Notice Reviewer: [email or web address] - Trista Garvin Notice Issued Date-Time: 10/01/2019 9:04 Notice Type: Patient Choice Letter Notice Delivered To: Patient Relationship to Patient: Self Zone Supervisor Firearms Name: Delivery Method: HAND - Hand Delivered Mary Days: Prior Verbal Notification: Recipient Understood Notice: Yes Recipient Signature: Yes Med Rec Note Co-signed by Attending: Coverage Notice Comment: ALIYAH for [facility] Last DP export: 10/02/19 10:30 a Patient Name: ANTIONE ADLER Page [phone] at 1258 All edits/amendments must be made on the electronic document DICTATION DATE: 10/03/19 1257 BARKER OPERATOR: WENDIE 10/03/19 1257 RPT#: [id number] DC DATE: STATUS: ADM IN [facility] [address] [place] [address] END OF REPORT
--- NOTE | 2019-10-03 14:52 | MORECARE ---
CASE MANAGEMENT DISCHARGE SUMMARY PATIENT: ANTIONE ADLER JR UNIT: [id number] ADM DATE: 09/28/19 AGE: 63 : 53 SEX: M ROOM/BED: D.2118 AUTHOR: SADIE PARMAR PHYSICIAN: REFERRING PHYSICIAN: RIOS GARCIA MD DATE OF SERVICE: 10/03/19 Discharge Plan Patient Name: ANTIONE ADLER Facility: [facility]:[place] : 1955 Planned Disposition: Home Anticipated Discharge Date: Discharge Date: Expected LOS: Initial Reviewer: [email or web address] Initial Review Date: 10/01/2019 Generated: 10/03/19 3:52 pm Comments DCP- Discharge Planning Updated by [email or web address]: Trista Garvin on 10/02/19 10:[address] Patient resting room air saturation is 98% and 97% during exertion, he does not qualify for home oxygen. [facility] has his nebulizer and neb meds on order, they will deliver on discharge. His insurance requires a prior auth for Entrest[employer], I called and spoke with Randi at Dr Garcia's office and she will notify Dr. Garcia. Randi states she will call me back with instruction. CM will continue to follow and assist with discharge planning/needs. DCP- Discharge Planning Updated by [email or web address]: Trista Garvin on 10/01/19 8:[address] Patient Name: ANTIONE ADLER Admission Status: Elective Accout number: [id number] Admission Date: 09-28-2019 : 1955 Admission Diagnosis: Attending: RIOS GARCIA Current LOS: 3 Anticipated DC Date: Planned Disposition: Home Primary Insurance: [employer] ADV Discharge Planning Comments: CM met with patient to complete initial dc planning assessment. CM educated patient on the CM role and verbal consent given by patient to complete assessment. Patient lives at home alone. At discharge patient plans to return and feels this is a safe discharge. CM discussed availability of home health, rehab services, and medical equipment. Patient denied known discharge needs at this time. I informed the patient that Dr. Marroquin wants him to have a nebulizer and nebulizer medications on discharge and he may need oxygen, we will have to check a room air oxygen saturation within 2 days of discharge. He signed ALIYAH for [facility]. I faxed a nebulizer order along with copy of insurance cards and clinical to [facility] and spoke with Shon. CM will continue to follow and will assist as needed with dc plans/needs. Air Duct Mechanic: Trista Garvin DCPIA - Discharge Planning Initial Assessment Updated by [email or web address]: Trista Garvin on 10/01/19 9:07 am * Is the patient Alert and Oriented? Yes * PCP Dottie Michaels with [facility] * Pharmacy [facility] on [address] * Preadmission Environment Home with Family * ADLs Independent * Equipment Cane Walker * List name and contact numbers for known caregivers / representatives who currently or will assist patient after discharge: Gonzalez Jones [facility] - [phone] * Verbal permission to speak to the caregivers and representatives has been obtained from the patient. Yes * Community resources currently utilized None * Additional services required to return to the preadmission environment? Yes * Can the patient safely return to the preadmission environment? Yes * Has this patient been hospitalized within the prior 30 days at any hospital? No External Providers External Provider: [facility] Next Contact Date: Service Request Date: Service Type: Resolution: Reviewer: Comments: Coverage Notice Reviewer: [id number] Remedios Garvin Notice Issued Date-Time: 10/01/2019 9:04 Notice Type: Patient Choice Letter Notice Delivered To: Patient Relationship to Patient: Self Rolling Mill Operator Name: Delivery Method: HAND - Hand Delivered Mary Days: Prior Verbal Notification: Recipient Understood Notice: Yes Recipient Signature: Yes Med Rec Note Co-signed by Attending: Coverage Notice Comment: ALIYAH for [facility] Reviewer: [id number] Remedios Garvin Notice Issued Date-Time: 10/03/2019 14:47 Notice Type: Patient Choice Letter Notice Delivered To: Patient Relationship to Patient: Self Rolling Mill Operator Name: Delivery Method: - Mary Days: Prior Verbal Notification: Recipient Understood Notice: Recipient Signature: Med Rec Note Co-signed by Attending: Coverage Notice Comment: Last DP export: 10/03/19 11:58 a Patient Name: ANTIONE ADLER Page [id number] at 1452 All edits/amendments must be made on the electronic document DICTATION DATE: 10/03/191451 SCIENTIFIC RESEARCH ASSOCIATE: WENDIE 10/03/191451 RPT#: [id number] DC DATE: STATUS: ADM IN [facility] [address] [place] [address] END OF REPORT
--- NOTE | 2019-10-03 15:01 | MORECARE ---
CASE MANAGEMENT DISCHARGE SUMMARY PATIENT: ANTIONE ADLER JR UNIT: [id number] ADM DATE: 09/28/19 AGE: 63 : 53 SEX: M ROOM/BED: D.2118 AUTHOR: AGATA,SADIE PHYSICIAN: REFERRING PHYSICIAN: RIOS GARCIA MD DATE OF SERVICE: 10/03/19 Discharge Plan Patient Name: ANTIONE ADLER Facility: [facility]:[place] : 1955 Planned Disposition: Home Anticipated Discharge Date: Discharge Date: Expected LOS: Initial Reviewer: [id number] Initial Review Date: 10/01/2019 Generated: 10/03/19 4:01 pm Comments DCP- Discharge Planning Updated by [id number]: Trista Garvin on 10/03/19 1:[address] Care 4 is not in network with insurance. I called [facility] and spoke with Mi, they will do start of care on Monday if he is released tomorrow. I have faxed clinical and order to [facility] and informed that his insurance is changing October 08 to [facility] per patient. CM will continue to follow and assist with discharge planning/needs. DCP- Discharge Planning Updated by [email or web address]: Trista Virgie on 10/02/19 10:[address] Patient resting room air saturation is 98% and 97% during exertion, he does not qualify for home oxygen. [facility] has his nebulizer and neb meds on order, they will deliver on discharge. His insurance requires a prior auth for Entresto, I called and spoke with Randi at Dr Garcia's office and she will notify Dr. Garcia. Randi states she will call me back with instruction. CM will continue to follow and assist with discharge planning/needs. DCP- Discharge Planning Updated by [id number]: Trista Virgie on 10/01/19 8:[address] Patient Name: ANTIONE ADLER Admission Status: Elective Accout number: [id number] Admission Date: 09-28-2019 : 1955 Admission Diagnosis: Attending: RIOS GARCIA Current LOS: 3 Anticipated DC Date: Planned Disposition: Home Primary Insurance: [employer] ADV Discharge Planning Comments: CM met with patient to complete initial dc planning assessment. CM educated patient on the CM role and verbal consent given by patient to complete assessment. Patient lives at home alone. At discharge patient plans to return and feels this is a safe discharge. CM discussed availability of home health, rehab services, and medical equipment. Patient denied known discharge needs at this time. I informed the patient that Dr. Marroquin wants him to have a nebulizer and nebulizer medications on discharge and he may need oxygen, we will have to check a room air oxygen saturation within 2 days of discharge. He signed ALIYAH for [facility]. I faxed a nebulizer order along with copy of insurance cards and clinical to [facility] and spoke with Shon. CM will continue to follow and will assist as needed with dc plans/needs. Woods Superintendent: Trista Garvin DCPIA - Discharge Planning Initial Assessment Updated by [email or web address]: Trista Garvin on 10/01/19 9:07 am * Is the patient Alert and Oriented? Yes * PCP Dottie Michaels with [facility] * Pharmacy [facility] on [address] * Preadmission Environment Home with Family * ADLs Independent * Equipment Cane Walker * List name and contact numbers for known caregivers / representatives who currently or will assist patient after discharge: Gonzalez Jones - DTR - [phone] * Verbal permission to speak to the caregivers and representatives has been obtained from the patient. Yes * Community resources currently utilized None * Additional services required to return to the preadmission environment? Yes * Can the patient safely return to the preadmission environment? Yes * Has this patient been hospitalized within the prior 30 days at any hospital? No Coverage Notice Reviewer: [id number] Remedios Garvin Notice Issued Date-Time: 10/01/2019 9:04 Notice Type: Patient Choice Letter Notice Delivered To: Patient Relationship to Patient: Self Soil Technologist Name: Delivery Method: HAND - Hand Delivered Mary Days: Prior Verbal Notification: Recipient Understood Notice: Yes Recipient Signature: Yes Med Rec Note Co-signed by Attending: Coverage Notice Comment: ALIYAH for [facility] Reviewer: [id number] Remedios Garvin Notice Issued Date-Time: 10/03/2019 14:47 Notice Type: Patient Choice Letter Notice Delivered To: Patient Relationship to Patient: Self Soil Technologist Name: Delivery Method: HAND - Hand Delivered Mary Days: Prior Verbal Notification: Recipient Understood Notice: Yes Recipient Signature: Yes Med Rec Note Co-signed by Attending: Coverage Notice Comment: ALIYAH FOR [facility] Last DP export: 10/03/19 1:52 p Patient Name: ANTIONE ADLER Page [id number] at 1501 All edits/amendments must be made on the electronic document DICTATION DATE: 10/03/19 150 PERINATAL SPECIALIST: WENDIE 10/03/19 1501 RPT#: [id number] DC DATE: STATUS: ADM IN [facility] [address] [place] [address] END OF REPORT
[2019-10-03 16:05] VITALS: BP 146/60
[2019-10-03 20:00] VITALS: BP 159/72
[2019-10-04] VITALS: BP 137/53
[2019-10-04 04:00] VITALS: BP 149/70
[2019-10-04 05:28] LABS: ANION GAP 6.4 mmol/L (8-16); CARBON DIOXIDE 31.3 mmol/L (21.0-32.0); CREATININE - SERUM 1.8 mg/dL (0.6-1.3); POTASSIUM - SERUM 3.7 mmol/L (3.5-5.1)
[2019-10-04] MEDS ORDERED: BROVANA15 MCG/2 M INH (08:05)
[2019-10-04] MEDS ORDERED: IPRAT-ALBUT 0.5-3 ML UPD (08:05)
[2019-10-04] MEDS ORDERED: NORVASC10 MG PO (08:06)
[2019-10-04] MEDS ORDERED: FUROSEMIDE20 MG PO (08:06)
[2019-10-04] MEDS ORDERED: COREG12.5 MG PO (08:06)
[2019-10-04] MEDS ORDERED: BUPROPION HCL150 M1 PO (08:09)
--- NOTE | 2019-10-04 09:15 | NUR ---
I SPOKE WITH DR TEJADA ON THE FLOOR AND HE ASKED THAT THE PATIENT CALL THE OFFICE MONDAY AM FOR F/U APPT AND ENESTRO.
--- NOTE | 2019-10-04 10:11 | MORECARE ---
CASE MANAGEMENT DISCHARGE SUMMARY PATIENT: ANTIONE ADLER JR UNIT: [id number] ADM DATE: 09/28/19 AGE: 63 : 53 SEX: M ROOM/BED: D.6199 AUTHOR: SADIE PARMAR PHYSICIAN: REFERRING PHYSICIAN: RIOS GARCIA MD DATE OF SERVICE: 10/04/19 Discharge Plan Patient Name: ANTIONE ADLER Facility: [facility]:[place] : 1955 Planned Disposition: Home Anticipated Discharge Date: Discharge Date: Expected LOS: Initial Reviewer: [email or web address] Initial Review Date: 10/01/2019 Generated: 10/04/19 11:10 am Comments DCP- Discharge Planning Updated by [id number]: Trista Garvin on 10/04/19 9:[address] Patient Name: ANTIONE ADLER Encounter No: [id number] : 1955 Primary Insurance: [employer] MEDICARE ADV Anticipated DC Date: Planned Disposition: Home External Planned Provider: : DCP follow-up note: Patient and family in agreement with discharge plan. No changes to plan. IMM explained, signed, given, copy placed in MR. Brandie called Mi with [facility] and clinical faxed. Case management will follow and assist as needed. Trista Virgie DCP- Discharge Planning Updated by [email or web address]: Trista Virgie on 10/03/19 1:[address] Care 4 is not in network with insurance. I called [facility] and spoke with Mi, they will do start of care on Monday if he is released tomorrow. I have faxed clinical and order to [facility] and informed that his insurance is changing October 08 to [facility] per patient. CM will continue to follow and assist with discharge planning/needs. DCP- Discharge Planning Updated by [id number]: Trista Garvin on 10/02/19 10:[address] Patient resting room air saturation is 98% and 97% during exertion, he does not qualify for home oxygen. [facility] has his nebulizer and neb meds on order, they will deliver on discharge. His insurance requires a prior auth for Entresto, I called and spoke with Randi at Dr Garcia's office and she will notify Dr. Garcia. Randi states she will call me back with instruction. CM will continue to follow and assist with discharge planning/needs. DCP- Discharge Planning Updated by [id number]: Trista Garvin on 10/01/19 8:[address] Patient Name: ANTIONE ADLER Admission Status: Elective Accout number: [id number] Admission Date: 09-28-2019 : 1955 Admission Diagnosis: Attending: RIOS GARCIA Current LOS: 3 Anticipated DC Date: Planned Disposition: Home Primary Insurance: [employer] ADV Discharge Planning Comments: CM met with patient to complete initial dc planning assessment. CM educated patient on the CM role and verbal consent given by patient to complete assessment. Patient lives at home alone. At discharge patient plans to return and feels this is a safe discharge. CM discussed availability of home health, rehab services, and medical equipment. Patient denied known discharge needs at this time. I informed the patient that Dr. Marroquin wants him to have a nebulizer and nebulizer medications on discharge and he may need oxygen, we will have to check a room air oxygen saturation within 2 days of discharge. He signed ALIYAH for [facility]. I faxed a nebulizer order along with copy of insurance cards and clinical to [facility] and spoke with Shon. CM will continue to follow and will assist as needed with dc plans/needs. Power Builder Developer: Trista Garvin DCPIA - Discharge Planning Initial Assessment Updated by [email or web address]: Trista Gravin on 10/01/19 9:07 am * Is the patient Alert and Oriented? Yes * PCP Dottie Michaels with [facility] * Pharmacy [facility] on [address] * Preadmission Environment Home with Family * ADLs Independent * Equipment Cane Walker * List name and contact numbers for known caregivers / representatives who currently or will assist patient after discharge: Gonzalez Jones - DTR - [phone] * Verbal permission to speak to the caregivers and representatives has been obtained from the patient. Yes * Community resources currently utilized None * Additional services required to return to the preadmission environment? Yes * Can the patient safely return to the preadmission environment? Yes * Has this patient been hospitalized within the prior 30 days at any hospital? No Coverage Notice Reviewer: [id number] - Trista Garvin Notice Issued Date-Time: 10/01/2019 9:04 Notice Type: Patient Choice Letter Notice Delivered To: Patient Relationship to Patient: Self Filemaker Developer Name: Delivery Method: HAND - Hand Delivered Mary Days: Prior Verbal Notification: Recipient Understood Notice: Yes Recipient Signature: Yes Med Rec Note Co-signed by Attending: Coverage Notice Comment: ALIYAH for [facility] Reviewer: [id number] Remedios Garvin Notice Issued Date-Time: 10/03/2019 14:47 Notice Type: Patient Choice Letter Notice Delivered To: Patient Relationship to Patient: Self Filemaker Developer Name: Delivery Method: HAND - Hand Delivered Mary Days: Prior Verbal Notification: Recipient Understood Notice: Yes Recipient Signature: Yes Med Rec Note Co-signed by Attending: Coverage Notice Comment: ALIYAH FOR [facility]J [facility] Reviewer: [id number] Remedios Garvin Notice Issued Date-Time: 10/04/2019 10:02 Notice Type: IM Discharge Notice Notice Delivered To: Patient Relationship to Patient: Self Filemaker Developer Name: Delivery Method: HAND - Hand Delivered Mary Days: Prior Verbal Notification: Recipient Understood Notice: Yes Recipient Signature: Yes Med Rec Note Co-signed by Attending: Coverage Notice Comment: IMM explained, signed, given, copy placed in MR Last DP export: 10/03/19 2:01 p Patient Name: ANTIONE ADLER Page 13952 at 1011 All edits/amendments must be made on the electronic document DICTATION DATE: 10/04/19 1010 BOX COVERER HAND: WENDIE 10/04/19 1010 RPT#: [id number] DC DATE: STATUS: ADM IN [facility] [address] [place] [address] END OF REPORT
--- NOTE | 2019-10-04 10:19 | MORECARE ---
CASE MANAGEMENT DISCHARGE SUMMARY PATIENT: ANTIONE ADLER JR UNIT: [id number] ADM DATE: 09/28/19 AGE: 63 : 53 SEX: M ROOM/BED: D.2111 AUTHOR: AGATADOC PHYSICIAN: REFERRING PHYSICIAN: RIOS GARCIA MD DATE OF SERVICE: 10/04/19 Discharge Plan Patient Name: ANTIOEN ADLER Facility: [facility]:[place] : 1955 Planned Disposition: Home Anticipated Discharge Date: Discharge Date: Expected LOS: Initial Reviewer: [id number] Initial Review Date: 10/01/2019 Generated: 10/04/19 11:18 am Comments DCP- Discharge Planning Updated by [id number]: Trista Garvin on 10/04/19 9:[address] I noted Brovana Updraft on DC med list with Albuterol UD. I notified Shon Fox with [facility] and she will notify Dr. Marroquin and get the order for Brovana (she already has order for albuterol). DCP- Discharge Planning Updated by [id number]: Trista Garvin on 10/04/19 9:[address] Patient Name: ANTIONE ADLER Encounter No: [id number] : 1955 Primary Insurance: [employer] ADV Anticipated DC Date: Planned Disposition: Home External Planned Provider: : DCP follow-up note: Patient and family in agreement with discharge plan. No changes to plan. IMM explained, signed, given, copy placed in MR. I called Mi with [facility] and clinical faxed. Case management will follow and assist as needed. Trista Garvin DCP- Discharge Planning Updated by [email or web address]: Trista Garvin on 10/03/19 1:[address] Care 4 is not in network with insurance. I called [facility] and spoke with Mi, they will do start of care on Monday if he is released tomorrow. I have faxed clinical and order to [facility] and informed that his insurance is changing October 08 to [facility] per patient. CM will continue to follow and assist with discharge planning/needs. DCP- Discharge Planning Updated by [id number]: Trista Garvin on 10/02/19 10:[address] Patient resting room air saturation is 98% and 97% during exertion, he does not qualify for home oxygen. [facility] has his nebulizer and neb meds on order, they will deliver on discharge. His insurance requires a prior auth for Entresto, I called and spoke with Randi at Dr Garcia's office and she will notify Dr. Garcia. Randi states she will call me back with instruction. CM will continue to follow and assist with discharge planning/needs. DCP- Discharge Planning Updated by [id number]: Trista Garvin on 10/01/19 8:[address] Patient Name: ANTIONE ADLER Admission Status: Elective Accout number: [id number] Admission Date: 09-28-2019 : 1955 Admission Diagnosis: Attending: RIOS GARCIA Current LOS: 3 Anticipated DC Date: Planned Disposition: Home Primary Insurance: [employer] ADV Discharge Planning Comments: CM met with patient to complete initial dc planning assessment. CM educated patient on the CM role and verbal consent given by patient to complete assessment. Patient lives at home alone. At discharge patient plans to return and feels this is a safe discharge. CM discussed availability of home health, rehab services, and medical equipment. Patient denied known discharge needs at this time. I informed the patient that Dr. Marroquin wants him to have a nebulizer and nebulizer medications on discharge and he may need oxygen, we will have to check a room air oxygen saturation within 2 days of discharge. He signed ALIYAH for [facility]. I faxed a nebulizer order along with copy of insurance cards and clinical to [facility] and spoke with Shon. CM will continue to follow and will assist as needed with dc plans/needs. Manager Auto: Trista Garvin DCPIA - Discharge Planning Initial Assessment Updated by [id number]: Trista Garvin on 10/01/19 9:07 am * Is the patient Alert and Oriented? Yes * PCP Dottie Michaels with [facility] * Pharmacy [facility] on [address] * Preadmission Environment Home with Family * ADLs Independent * Equipment Cane Walker * List name and contact numbers for known caregivers / representatives who currently or will assist patient after discharge: Gonzalez Jones [facility] - [phone] * Verbal permission to speak to the caregivers and representatives has been obtained from the patient. Yes * Community resources currently utilized None * Additional services required to return to the preadmission environment? Yes * Can the patient safely return to the preadmission environment? Yes * Has this patient been hospitalized within the prior 30 days at any hospital? No Coverage Notice Reviewer: [id number] Remedios Garvin Notice Issued Date-Time: 10/03/2019 14:47 Notice Type: Patient Choice Letter Notice Delivered To: Patient Relationship to Patient: Self Cloth Shearing Supervisor Name: Delivery Method: HAND - Hand Delivered Mary Days: Prior Verbal Notification: Recipient Understood Notice: Yes Recipient Signature: Yes Med Rec Note Co-signed by Attending: Coverage Notice Comment: ALIYAH FOR [facility] Reviewer: [id number] Remedios Garvin Notice Issued Date-Time: 10/01/2019 9:04 Notice Type: Patient Choice Letter Notice Delivered To: Patient Relationship to Patient: Self Cloth Shearing Supervisor Name: Delivery Method: HAND - Hand Delivered Mary Days: Prior Verbal Notification: Recipient Understood Notice: Yes Recipient Signature: Yes Med Rec Note Co-signed by Attending: Coverage Notice Comment: ALIYAH for [facility] Reviewer: [id number] Remedios Garvin Notice Issued Date-Time: 10/04/2019 10:02 Notice Type: IM Discharge Notice Notice Delivered To: Patient Relationship to Patient: Self Cloth Shearing Supervisor Name: Delivery Method: HAND - Hand Delivered Mary Days: Prior Verbal Notification: Recipient Understood Notice: Yes Recipient Signature: Yes Med Rec Note Co-signed by Attending: Coverage Notice Comment: IMM explained, signed, given, copy placed in MR Last DP export: 10/04/19 9:11 a Patient Name: ANTIONE ADLER Page 54527 at 1019 All edits/amendments must be made on the electronic document DICTATION DATE: 10/04/19 1018 ENDLESS BELT FINISHER: WENDIE 10/04/19 1018 RPT#: [id number] DC DATE: STATUS: ADM IN [facility] [address] [place] [address] END OF REPORT
--- NOTE | 2019-10-04 10:38 | NUR ---
REVIEWED DISCHARGE INSTRUCTIONS WITH PT STATES UNDERSTANDING COPY GIVEN DCD SALINE LOCK TO RT WRIST WITH IV CATHETER INTACT SITE FREE OF REDNESS OR EDEMA PT DISCHARGED HOME IN STABLE CONDITION WITH ALL PERSONAL BELONGINGS LEFT UNIT VIA W/C
--- NOTE | 2019-10-05 09:51 | DS ---
PATIENT:ANTIONE ADLER JR :53 MEDICAL RECORD: [id number] DISCHARGE SUMMARY ADMISSION DATE: 09/28/19 DISCHARGE DATE: 10/04/19 DISCHARGE DIAGNOSES: 1. Acute hypoxic and hypercapnic respiratory failure 2. Chronic systolic congestive heart failure. 3. Nonischemic cardiomyopathy. 4. 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 5. Chronic obstructive pulmonary disease. 6. Moderate mitral regurgitation. 7. Ventral hernia. 8. Adult-onset diabetes mellitus. 9. Hypertension. 10. Neuropathy. 11. Medication noncompliance. HOSPITAL COURSE: A 63-year-old -[place] male followed by Dr. Michaels at [facility] presented with increasing shortness of breath. He was admitted. Serial enzymes were negative. There was concern for CAD. The patient has been followed at [facility] cardiology department. The patient admitted to being noncompliant with his medications recently. He also uses updrafts at home for COPD. He was admitted. Serial enzymes were negative for acute injury. Echocardiogram did show an EF of 20%. Dr. Yu from cardiology was consulted. He felt the patient would benefit from cardiac catheterization, which was performed showing normal coronaries, but severe systolic dysfunction in the range of 20%. The patient's medicines were again maximized. He was diuresed. He was seen by pulmonary as well, but Dr. Pritchard thought this was most likely cardiac etiology. The patient diuresed well and is now not requiring oxygen at all. His sats were in the 94-96 range. He will be discharged home today on home updrafts diuretics and lisinopril. He will see his primary physician, Dr. Michaels at [facility] next week and she will discuss with cardiology at [facility] qualifying the patient for Entresto. Also, our concerns were his risk for VT due to low EF and we would recommend consideration for ICD. The patient was discharged home today in improving condition. DISCHARGE MEDICATIONS: Robaxin 1000 mg q.i.d. p.r.n. low back pain, Eliquis 5 mg p.o. b.i.d., lisinopril 20 mg a day, tramadol 50 mg q.6 hours p.r.n. low back pain, MiraLax 17 g p.o. daily, amlodipine 10 mg p.o. daily, Coreg 12.5 mg p.o. b.i.d., doxazosin 2 mg a day, Zocor 20 mg at bedtime, Wellbutrin-SR 150 mg q.12 hours, and Lasix 20 mg a day. DIET: No added salt. Return to clinic to see Dr. Michaels on Monday or Monday with BMP and consideration for Entresto plus or minus ICD referral. ACTIVITY: As tolerated. TRANSINT:[id number] Voice Confirmation ID: [id number] DOCUMENT ID: [id number] DISCHARGE SUMMARY REPORT [id number] ANTIONE ADLER JR, TIMOTHY MD at 0951 CC: [id number] DICTATION DATE: 10/04/19 0804 FREELANCE DIRECTOR: 10/05/19 0305 DIS IN 10/04/19 [facility] [address] [place] [address]
--- NOTE | 2019-10-05 10:21 | MORECARE ---
CASE MANAGEMENT DISCHARGE SUMMARY PATIENT: ANTIONE ADLER JR UNIT: [id number] ADM DATE: 09/28/19 AGE: 63 : 53 SEX: M ROOM/BED: D.7641 AUTHOR: SADIE PAMRAR PHYSICIAN: REFERRING PHYSICIAN: RIOS GARCIA MD DATE OF SERVICE: 10/05/19 Discharge Plan Patient Name: ANTIONE ADLER Facility: [facility]:[place] : 1955 Planned Disposition: Home Anticipated Discharge Date: Discharge Date: 10/04/2019 Expected LOS: Initial Reviewer: [email or web address] Initial Review Date: 10/01/2019 Generated: 10/05/19 11:21 am Comments DCP- Discharge Planning Updated by [email or web address]: Trista Garvin on 10/04/19 9:[address] I noted Brovana Updraft on DC med list with Albuterol UD. I notified Shon Fox with [facility] [place] and she will notify Dr. Marroquin and get the order for Brovana (she already has order for albuterol). DCP- Discharge Planning Updated by [email or web address]: Trista Garvin on 10/04/19 9:[address] Patient Name: ANTIONE ADLER Encounter No: [id number] : 1955 Primary Insurance: [employer] ADV Anticipated DC Date: Planned Disposition: Home External Planned Provider: : DCP follow-up note: Patient and family in agreement with discharge plan. No changes to plan. IMM explained, signed, given, copy placed in MR. I called Mi with [facility] and clinical faxed. Case management will follow and assist as needed. Trista Garvin DCP- Discharge Planning Updated by [email or web address]: Trista Garvin on 10/03/19 1:[address] [facility] is not in network with insurance. I called [facility] and spoke with Mi, they will do start of care on Monday if he is released tomorrow. I have faxed clinical and order to [facility] and informed that his insurance is changing October 08 to [facility] per patient. CM will continue to follow and assist with discharge planning/needs. DCP- Discharge Planning Updated by [email or web address]: Trista Garvin on 10/02/19 10:[address] Patient resting room air saturation is 98% and 97% during exertion, he does not qualify for home oxygen. [facility] has his nebulizer and neb meds on order, they will deliver on discharge. His insurance requires a prior auth for [employer], I called and spoke with Randi at Dr Garcia's office and she will notify Dr. Garcia. Randi states she will call me back with instruction. CM will continue to follow and assist with discharge planning/needs. DCP- Discharge Planning Updated by [id number]: Trista Garvin on 10/01/19 8:[address] Patient Name: ANTIONE ADLER Admission Status: Elective Accout number: [id number] Admission Date: 09-28-2019 : 1955 Admission Diagnosis: Attending: RIOS GARCIA Current LOS: 3 Anticipated DC Date: Planned Disposition: Home Primary Insurance: [employer] ADV Discharge Planning Comments: CM met with patient to complete initial dc planning assessment. CM educated patient on the CM role and verbal consent given by patient to complete assessment. Patient lives at home alone. At discharge patient plans to return and feels this is a safe discharge. CM discussed availability of home health, rehab services, and medical equipment. Patient denied known discharge needs at this time. I informed the patient that Dr. Marroquin wants him to have a nebulizer and nebulizer medications on discharge and he may need oxygen, we will have to check a room air oxygen saturation within 2 days of discharge. He signed ALIYAH for [facility]. I faxed a nebulizer order along with copy of insurance cards and clinical to [facility] and spoke with Shon. CM will continue to follow and will assist as needed with dc plans/needs. Therapist: Trista Garvin DCPIA - Discharge Planning Initial Assessment Updated by [email or web address]: Trista Garvin on 10/01/19 9:07 am * Is the patient Alert and Oriented? Yes * PCP Dottie Michaels with [facility] * Pharmacy [facility] on [address] * Preadmission Environment Home with Family * ADLs Independent * Equipment Cane Walker * List name and contact numbers for known caregivers / representatives who currently or will assist patient after discharge: [facility] - [phone] * Verbal permission to speak to the caregivers and representatives has been obtained from the patient. Yes * Community resources currently utilized None * Additional services required to return to the preadmission environment? Yes * Can the patient safely return to the preadmission environment? Yes * Has this patient been hospitalized within the prior 30 days at any hospital? 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 Name: Delivery Method: HAND - Hand Delivered Mary Days: Prior Verbal Notification: Recipient Understood Notice: Yes Recipient Signature: Yes Med Rec Note Co-signed by Attending: Coverage Notice Comment: ALIYAH for [facility] Reviewer: [id number] Remedios Garvin Notice Issued Date-Time: 10/03/2019 14:47 Notice Type: Patient Choice Letter Notice Delivered To: Patient Relationship to Patient: Self Streetcar Dispatcher Name: Delivery Method: HAND - Hand Delivered Mary Days: Prior Verbal Notification: Recipient Understood Notice: Yes Recipient Signature: Yes Med Rec Note Co-signed by Attending: Coverage Notice Comment: ALIYAH FOR TJ COBB Reviewer: [id number] Garvin Notice Issued Date-Time: 10/04/2019 10:02 Notice Type: IM Discharge Notice Notice Delivered To: Patient Relationship to Patient: Self Streetcar Dispatcher Name: Delivery Method: HAND - Hand Delivered Mary Days: Prior Verbal Notification: Recipient Understood Notice: Yes Recipient Signature: Yes Med Rec Note Co-signed by Attending: Coverage Notice Comment: IMM explained, signed, given, copy placed in MR Last DP export: 10/04/19 9:19 a Patient Name: ANTIONE ADLER Page [id number] at 1021 All edits/amendments must be made on the electronic document DICTATION DATE: 10/05/[address] JUSTICE: DM 10/05/19 1021 RPT#: [id number] DC DATE:10/04/19 STATUS: DIS IN [facility] [address] [place] [address] END OF REPORT
== END 2019-10-04 10:38 | disposition home or self-care (01) | DRG 286 ==
LOC: D.ER 15:19 → D.MS 17:02 → D.M2 17:02
PROVIDERS: Emergency Medicine; Internal Medicine Cardiovascular Disease; Internal Medicine Pulmonary Disease; ADMIT Family Medicine; ATTEND Family Medicine
PROC: B2151ZZ Fluoroscopy of Left Heart using Low Osmolar Contrast (ICD-10-PCS; 2019-09-30)
PROC: 4A023N7 Measurement of Cardiac Sampling and Pressure, Left Heart, Percutaneous Approach (ICD-10-PCS; 2019-09-30)
PROC: B2111ZZ Fluoroscopy of Multiple Coronary Arteries using Low Osmolar Contrast (ICD-10-PCS; principal; 2019-09-30 07:56)
DX: I13.0 Hypertensive heart and chronic kidney disease with heart failure and stage 1 through stage 4 chronic kidney disease, or unspecified chronic kidney disease (principal); J96.02 Acute respiratory failure with hypercapnia; I50.43 Acute on chronic combined systolic (congestive) and diastolic (congestive) heart failure; J96.01 Acute respiratory failure with hypoxia; J18.9 Pneumonia, unspecified organism; J44.0 Chronic obstructive pulmonary disease with (acute) lower respiratory infection; E87.2 Acidosis; I42.9 Cardiomyopathy, unspecified; K43.9 Ventral hernia without obstruction or gangrene; N28.9 Disorder of kidney and ureter, unspecified; F17.200 Nicotine dependence, unspecified, uncomplicated; K21.9 Gastro-esophageal reflux disease without esophagitis; G47.33 Obstructive sleep apnea (adult) (pediatric); I34.0 Nonrheumatic mitral (valve) insufficiency; N18.9 Chronic kidney disease, unspecified; E11.22 Type 2 diabetes mellitus with diabetic chronic kidney disease; Z91.19 Patient's noncompliance with other medical treatment and regimen; Z86.711 Personal history of pulmonary embolism

== ENCOUNTER 2020-06-11 17:38 | Emergency (ER) | payer MEDICARE ==
[~2020-06-11] VITALS: Ht 157.5 cm; Wt 63.6 kg
[~2020-06-11 17:38] MED LIST changes: +AMBIEN5 MG PO; +BACTRIM DS TABL1 TAB PO; +BROVANA15 MCG/2 M INH; +BUPROPION HCL150 M1 PO; +CARAFATE1 G PO; +COREG12.5 MG PO; +COREG25 MG PO; +CYPROHEPTADINE H4 MG PO; +ELIQUIS2.5 MG PO; +FUROSEMIDE20 MG PO; +HYDROXYZINE HCL50 MG PO; +IPRAT-ALBUT 0.5-3 ML UPD; +ISOSORBIDE DINI20 MG PO; +KLOR-CON M2020 MEQ PO; +LASIX20 MG PO; +MIRALAX527 GM PO; +NORVASC10 MG PO; +OXYCODONE HCL5 MG PO; +SEROQUEL25 MG PO; +ZOCOR20 MG PO; +ZOFRAN4 MG PO
[2020-06-11 17:55] VITALS: Ht 157.5 cm; Wt 63.6 kg
[2020-06-11 18:17] LABS: BILIRUBIN NEGATIVE (NEGATIVE); KETONE NEGATIVE (NEGATIVE); NITRITE NEGATIVE (NEGATIVE); UROBILINOGEN NORMAL mg/dL (< 2)
[2020-06-11 18:22] LABS: BACTERIA MANY HPF (NONE SEEN); SQUAMOUS EPITHELIAL NONE SEEN HPF (0-4)
[2020-06-11 18:29] LABS: BASOPHILS 0.5 % (0-2); EOSINOPHILS 1.8 % (0-7); HEMATOCRIT 45.9 % (42.0-54.0); HEMOGLOBIN 15.2 g/dL (13.5-17.5); IMMATURE GRANULOCYTES 0.2 % (0-5); LYMPHOCYTE ABS# 2.73 10x3/uL (1.32-3.57); LYMPHOCYTES 41.7 % (15-50); MCH 30.8 pg (26.0-34.0); MCHC 33.1 g/dL (31.0-37.0); MCV 92.9 fL (80.0-100.0); MEAN PLATELET VOLUME 9.6 fL (7.4-10.4); MONOCYTES 8.4 % (2-11); NEUTROPHILS 47.4 % (40-80); RBC 4.94 10x6/uL (4.20-6.10); WBC 6.5 10x3/uL (4.8-10.8)
[2020-06-11 18:30] LABS: PLATELET COUNT 155 10x3/uL (130-400)
[2020-06-11 18:47] LABS: ANION GAP 12.1 mmol/L (8-16); CALCIUM 8.4 mg/dL (8.5-10.1); CARBON DIOXIDE 23.9 mmol/L (21.0-32.0); CREATININE - SERUM 1.7 mg/dL (0.6-1.3)
[2020-06-11 19:02] LABS: ALBUMIN 2.4 g/dL (3.4-5.0); BILIRUBIN - TOTAL 0.08 mg/dL (0.2-1.3); PROTEIN - SERUM 6.3 g/dL (6.4-8.2); TROPONIN-I 0.059 ng/mL (0.000-0.060)
[2020-06-11] MEDS ORDERED: LEVAQUIN750 MG PO (20:21)
[2020-06-11] MEDS ORDERED: FLOMAX0.4 MG PO (20:21)
[2020-06-11 20:48] VITALS: BP 189/97
== END 2020-06-11 20:49 | disposition home or self-care (01) ==
LOC: D.ER 17:38
PROVIDERS: Family Medicine
DX: N39.0 Urinary tract infection, site not specified (principal); R10.32 Left lower quadrant pain; N13.30 Unspecified hydronephrosis; G62.9 Polyneuropathy, unspecified; I10 Essential (primary) hypertension; I25.2 Old myocardial infarction; Z72.0 Tobacco use

== ENCOUNTER 2020-06-12 11:25 | Emergency (ER) | payer MEDICARE ==
[~2020-06-12] VITALS: Ht 157.5 cm; Wt 59.1 kg
[~2020-06-12 11:25] MED LIST changes: +FLOMAX0.4 MG PO; +LEVAQUIN750 MG PO
[2020-06-12 11:32] VITALS: BP 169/71; Ht 157.5 cm; Wt 59.1 kg
[2020-06-12 14:06] LABS: BACTERIA MANY HPF (NONE SEEN); BILIRUBIN NEGATIVE (NEGATIVE); KETONE NEGATIVE (NEGATIVE); NITRITE NEGATIVE (NEGATIVE); SQUAMOUS EPITHELIAL OCC HPF (0-4); UROBILINOGEN NORMAL mg/dL (< 2); WHITE CELLS - URINE 25-50 HPF (0-1)
== END 2020-06-12 14:00 | disposition left against medical advice (07) ==
LOC: D.ER 11:25
PROVIDERS: Family Medicine
DX: R10.9 Unspecified abdominal pain (principal)